=== PATIENT | female | born 1930 | race Caucasian/White ===

== ENCOUNTER 2018-02-01 23:13 | Inpatient (IN) | payer OTHER ==
[~2018-02-01] VITALS: Ht 160 cm; Wt 76.0 kg
[2018-02-02] VITALS (10 sets, daily range): BP systolic 131–184; BP diastolic 64–119
[2018-02-02 00:46] LABS: Basophils # (auto) 0 uL; Basophils % (auto) 0.7 % (0.0-2.0); Eosinophils # (auto) 0.1 uL; Eosinophils % (auto) 2.7 % (0.0-7.0); Hematocrit 27.6 % (36.0-46.0); Lymphocytes # (auto) 0.7 uL; Lymphocytes % (auto) 12.4 % (10.0-50.0); Mean Corpuscular Hemoglobin 32.3 pg (28.0-32.0); Mean Corpuscular Hgb Conc. 32.5 g/dL (32.0-36.0); Mean Corpuscular Volume 99.3 fL (80.0-100.0); Monocytes # (auto) 0.6 uL; Neutrophils # (auto) 3.9 uL; Neutrophils % (auto) 73.2 % (37.0-80.0); Platelet Count (auto) 87 10^3/uL (140-450); Red Blood Cells 2.78 10^6/uL (4.0-5.20); Red Cell Distribution Width 15.1 % (11.8-14.3); White Blood Cell 5.3 10^3/uL (4.4-10.8)
[2018-02-02 01:05] LABS: Albumin 3.1 g/dL (3.4-5.0); BUN/Creatinine Ratio 24.4; Calcium 8.5 mg/dL (8.5-10.1); Magnesium 2.6 mg/dL (1.6-2.6); Potassium 4.1 mmol/L (3.5-5.1)
[2018-02-02 01:10] LABS: Bilirubin, Total 0.6 mg/dL (0.2-1.0); Total Protein 7.5 g/dL (6.4-8.2)
[2018-02-02] MEDS ORDERED: FUROSEMIDE 20 MG/2 ML VIAL IV ONE (01:45)
[2018-02-02] MEDS ORDERED: IPRATROPIUM BROM 0.5 MG/2.5ML INH SOL NEB ONE (02:15)
[2018-02-02] MEDS ORDERED: ALBUTEROL SULF 2.5 MG/0.5ML(0.5%) NEB SOLN NEB ONE (02:15)
[2018-02-02] MEDS ORDERED: LORazepam 2MG/ML-1ML VIAL IV ONE (02:30)
[2018-02-02] MEDS ORDERED: ACETAMINOPHEN 325 MG TAB PO PRN (03:45)
[2018-02-02] MEDS ORDERED: ALBUTEROL SULF 2.5 MG/0.5ML(0.5%) NEB SOLN NEB PRN (03:45)
[2018-02-02] MEDS ORDERED: ENOXAPARIN SOD 100 MG/1 ML SYRINGE SC ONE (03:45)
[2018-02-02] MEDS ORDERED: TEMAZEPAM 15 MG CAP PO PRN (03:45)
[2018-02-02] MEDS ORDERED: MORPHINE SULF INJ 2 MG/ML SYRINGE 1ML IV PRN (03:45)
[2018-02-02] MEDS ORDERED: ONDANSETRON HCL 4 MG/2 ML VIAL IV PRN (03:45)
[2018-02-02] MEDS ORDERED: HYDROcodone-ACET 5/325MG TAB PO PRN (03:45)
[2018-02-02] MEDS ORDERED: NITROGLYCERIN 0.4 MG SL TAB SL PRN (03:45)
[2018-02-02] MEDS: cloNIDine HCL 0.1 MG TAB PO PRN ×2 (04:54→21:36)
[2018-02-02] MEDS ORDERED: FUROSEMIDE 20 MG/2 ML VIAL IV SCH (06:00)
[2018-02-02] MEDS ORDERED: hydrALAZINE HCL 20 MG/ML VL IV ONE (06:15)
[2018-02-02] MEDS: LEVOFLOXACIN 250MG 50 ML IV SCH (09:49)
[2018-02-02] MEDS: PANTOPRAZOLE 40 MG TAB PO SCH (09:50)
[2018-02-02] MEDS: ASPirin 81 mg TAB PO SCH (09:50)
[2018-02-02] MEDS: LOSARTAN POTASSIUM 50 MG TAB PO SCH (09:50)
[2018-02-02] MEDS ORDERED: CARVEDILOL 12.5 MG TAB PO SCH (10:00)
[2018-02-02] MEDS ORDERED: NITROGLYCERIN 0.2MG/HR TOPICAL PATCH TD ONE (10:15)
[2018-02-02] MEDS ORDERED: DIGOXIN 0.25 MG TAB PO ONE (10:15)
[2018-02-02] MEDS ORDERED: CALC0.5C PO (13:56)
[2018-02-02] MEDS ORDERED: POM IN (13:56)
[2018-02-02] MEDS ORDERED: FURO40TA4 PO (13:56)
[2018-02-02] MEDS ORDERED: CARV12.544 PO (13:56)
[2018-02-02] MEDS ORDERED: CLON0.1T PO (13:56)
[2018-02-02] MEDS ORDERED: FERR-20 PO (13:56)
[2018-02-02] MEDS ORDERED: POTA10TA79 PO (13:56)
[2018-02-02] MEDS ORDERED: SPIR25TA89 PO (13:56)
[2018-02-02] MEDS ORDERED: NITR0.4S29 SL (13:56)
[2018-02-02] MEDS ORDERED: ASPI81TA27 PO (13:56)
[2018-02-02] MEDS ORDERED: ASCO500T11 PO (13:56)
[2018-02-02] MEDS ORDERED: BECL40AE10 IN (13:56)
[2018-02-02] MEDS ORDERED: ATOR1TAB PO (13:56)
[2018-02-02] MEDS ORDERED: FAMO-12 PO (13:56)
[2018-02-02] MEDS ORDERED: SENN1TAB14 PO (13:56)
[2018-02-02] MEDS ORDERED: ZINC220C8 PO (13:56)
[2018-02-02] MEDS ORDERED: LOSA100T27 PO (13:56)
[2018-02-02] MEDS ORDERED: AMLO5TAB2 PO (13:56)
[2018-02-02] MEDS: FUROSEMIDE 20 MG/2 ML VIAL IV SCH (17:37)
[2018-02-02] MEDS: ATORVASTATIN 20 MG TAB PO SCH (21:36)
[2018-02-03] VITALS (7 sets, daily range): BP systolic 102–186; BP diastolic 69–97
[2018-02-03] MEDS: cloNIDine HCL 0.1 MG TAB PO PRN ×3 (04:38→17:16)
[2018-02-03] MEDS: FUROSEMIDE 20 MG/2 ML VIAL IV SCH ×2 (05:35→17:16)
[2018-02-03 05:57] LABS: INR 1.06 (0.9-1.15); Prothrombin Time 11.3 sec (9.27-12.13)
[2018-02-03 06:02] LABS: BUN/Creatinine Ratio 26.6; Calcium 8.5 mg/dL (8.5-10.1); Magnesium 2.4 mg/dL (1.6-2.6); Potassium 3.9 mmol/L (3.5-5.1)
[2018-02-03] MEDS: NIFEdipine ER 30 MG TAB PO ONE ×2 (08:00→18:28)
[2018-02-03] MEDS ORDERED: POTASSIUM CHL 20 Meq TABLET PO ONE (08:00)
[2018-02-03] MEDS: ASPirin 81 mg TAB PO SCH (09:21)
[2018-02-03] MEDS: NITROGLYCERIN 0.2MG/HR TOPICAL PATCH TD SCH (09:22)
[2018-02-03] MEDS: DIGOXIN 0.125 MG TAB PO SCH (09:23)
[2018-02-03] MEDS: PANTOPRAZOLE 40 MG TAB PO SCH (09:23)
[2018-02-03] MEDS: LEVOFLOXACIN 250MG 50 ML IV SCH (09:23)
[2018-02-03] MEDS: LOSARTAN POTASSIUM 50 MG TAB PO SCH (10:00)
[2018-02-03] MEDS: methylPREDNISolone SOD SUCC 40 MG/ML VL IV SCH ×2 (13:10→22:00)
[2018-02-03] MEDS: ENOXAPARIN SOD 30 MG/0.3 ML SYRINGE SC SCH (13:11)
[2018-02-03] MEDS ORDERED: GLYTROL 1,000 ML BTL PO SCH (18:15)
[2018-02-03] MEDS: Ensure Enlive Strawberry 8oz Bottle PO SCH (18:30)
[2018-02-03] MEDS: ATORVASTATIN 20 MG TAB PO SCH (22:00)
[2018-02-04 04:53] VITALS: BP 120/79
[2018-02-04 05:41] LABS: Basophils # (auto) 0 uL; Eosinophils # (auto) 0 uL; Hematocrit 27.6 % (36.0-46.0); Hemoglobin 9.3 g/dL (12.2-16.2); Lymphocytes # (auto) 0.3 uL; Lymphocytes % (auto) 8.6 % (10.0-50.0); Mean Corpuscular Hemoglobin 32.6 pg (28.0-32.0); Mean Corpuscular Hgb Conc. 33.6 g/dL (32.0-36.0); Mean Corpuscular Volume 97.1 fL (80.0-100.0); Monocytes # (auto) 0.1 uL; Monocytes % (auto) 2.5 % (0.0-12.0); Neutrophils # (auto) 2.8 uL; Neutrophils % (auto) 88.9 % (37.0-80.0); Platelet Count (auto) 96 10^3/uL (140-450); Red Blood Cells 2.84 10^6/uL (4.0-5.20); Red Cell Distribution Width 14.8 % (11.8-14.3); White Blood Cell 3.2 10^3/uL (4.4-10.8)
[2018-02-04 06:07] LABS: BUN/Creatinine Ratio 30.8; Calcium 8.7 mg/dL (8.5-10.1); Magnesium 2.9 mg/dL (1.6-2.6); Potassium 4.2 mmol/L (3.5-5.1)
[2018-02-04] MEDS: FUROSEMIDE 20 MG/2 ML VIAL IV SCH (06:09)
[2018-02-04] MEDS: Ensure Enlive Strawberry 8oz Bottle PO SCH ×2 (08:46→18:34)
[2018-02-04 09:00] VITALS: BP 140/76
[2018-02-04] MEDS: DIGOXIN 0.125 MG TAB PO SCH (10:00)
[2018-02-04] MEDS: LEVOFLOXACIN 250MG 50 ML IV SCH (10:08)
[2018-02-04] MEDS: LOSARTAN POTASSIUM 50 MG TAB PO SCH (10:09)
[2018-02-04] MEDS: methylPREDNISolone SOD SUCC 40 MG/ML VL IV SCH ×2 (10:09→21:47)
[2018-02-04] MEDS: PANTOPRAZOLE 40 MG TAB PO SCH (10:09)
[2018-02-04] MEDS: ASPirin 81 mg TAB PO SCH (10:09)
[2018-02-04] MEDS: ENOXAPARIN SOD 30 MG/0.3 ML SYRINGE SC SCH (10:10)
[2018-02-04] MEDS: NITROGLYCERIN 0.2MG/HR TOPICAL PATCH TD SCH (10:11)
[2018-02-04 12:48] VITALS: BP 126/74
[2018-02-04] MEDS ORDERED: TEMAZEPAM 15 MG CAP PO PRN (14:30)
[2018-02-04] MEDS ORDERED: hydrALAZINE HCL 25 MG TAB PO PRN (14:30)
[2018-02-04 17:00] VITALS: BP 135/69
[2018-02-04 20:00] VITALS: BP 129/70
[2018-02-04] MEDS: ATORVASTATIN 20 MG TAB PO SCH (21:47)
[2018-02-04 22:00] VITALS: BP 129/70
[2018-02-05 03:45] VITALS: BP 129/70
[2018-02-05 05:00] VITALS: BP 135/83
[2018-02-05] MEDS: Ensure Enlive Strawberry 8oz Bottle PO SCH (08:00)
[2018-02-05 09:28] VITALS: BP 152/89
[2018-02-05] MEDS: PANTOPRAZOLE 40 MG TAB PO SCH (10:00)
[2018-02-05] MEDS: LEVOFLOXACIN 250MG 50 ML IV SCH (10:00)
[2018-02-05] MEDS: NITROGLYCERIN 0.2MG/HR TOPICAL PATCH TD SCH (10:00)
[2018-02-05] MEDS: ENOXAPARIN SOD 30 MG/0.3 ML SYRINGE SC SCH (10:00)
[2018-02-05] MEDS: methylPREDNISolone SOD SUCC 40 MG/ML VL IV SCH (10:00)
[2018-02-05] MEDS: LOSARTAN POTASSIUM 50 MG TAB PO SCH (10:12)
[2018-02-05] MEDS: ASPirin 81 mg TAB PO SCH (10:12)
[2018-02-05 10:48] VITALS: BP 152/89
== END 2018-02-05 12:54 | disposition hospice, home (50) | DRG 280 ==
LOC: EDBD 23:13 → ER 23:22 → TELE 23:23 → TELE-WESTW 02-02 07:42
PROVIDERS: ADMIT Nurse Practitioner; ATTEND Family Medicine
PROC: 5A09357 Assistance with Respiratory Ventilation, Less than 24 Consecutive Hours, Continuous Positive Airway Pressure (ICD-10-PCS; principal; 2018-02-02)
DX: I21.4 Non-ST elevation (NSTEMI) myocardial infarction (principal); I50.23 Acute on chronic systolic (congestive) heart failure; J96.22 Acute and chronic respiratory failure with hypercapnia; I13.0 Hypertensive heart and chronic kidney disease with heart failure and stage 1 through stage 4 chronic kidney disease, or unspecified chronic kidney disease; J44.1 Chronic obstructive pulmonary disease with (acute) exacerbation; J98.11 Atelectasis; N18.3 Chronic kidney disease, stage 3 (moderate); Z66 Do not resuscitate; I25.10 Atherosclerotic heart disease of native coronary artery without angina pectoris; I27.20 Pulmonary hypertension, unspecified; Z87.891 Personal history of nicotine dependence; Z90.49 Acquired absence of other specified parts of digestive tract; I25.2 Old myocardial infarction; Z95.1 Presence of aortocoronary bypass graft; Z79.899 Other long term (current) drug therapy; Z79.82 Long term (current) use of aspirin
CPT/HCPCS: 36415; 36600; 71045; 78582; 80048; 80053; 80061; 82805; 83735; 83880; 84484; 85025; 85379; 85610; 85730; 93005; 93306; 93970; 94640; 94660; 96365; 96372; 96375; 97110; 97116; 97163; 97530